=== PATIENT | male | born 1980 | race Caucasian/White ===

== ENCOUNTER 2020-01-12 21:10 | Emergency (ER) | payer OTHER ==
[2020-01-12] MEDS ORDERED: ACETAMINOPHEN-CAFF-BUTALBITAL 1 EA TAB PO ONE (21:20)
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
[2020-01-12 23:33] VITALS: BP 115/77; TEMP 97.4; O2SAT 97
== END 2020-01-12 23:20 | disposition home or self-care (01) ==
LOC: ER 21:10
DX: S00.03XA Contusion of scalp, initial encounter (principal); M62.838 Other muscle spasm; M79.661 Pain in right lower leg; M25.561 Pain in right knee; M25.562 Pain in left knee; V49.3XXA Car occupant (driver) (passenger) injured in unspecified nontraffic accident, initial encounter; Y92.410 Unspecified street and highway as the place of occurrence of the external cause

== ENCOUNTER 2020-01-15 15:01 | Emergency (ER) | payer OTHER ==
[2020-01-15 16:16] VITALS: TEMP 98.2
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
[2020-01-15] MEDS ORDERED: cefTRIAXone SODIUM 1 GM VIAL IM ONE (16:39)
[2020-01-15] MEDS ORDERED: CLINDAMYCIN HCL CAP 150 MG CAP PO ONE (16:39)
[2020-01-15] MEDS ORDERED: TETANUS,DIPHTHERIA,PERTUSSIS 1 EA SYG IM ONE (16:40)
--- NOTE | 2020-01-15 16:44 | ED.PDOC ---
History of Present Illness - General Chief Complaint: Skin/Abrasion/Tear Stated Complaint: abasion left knuckle Time Seen by Provider: 01/15/20 15:56 Source: patient, RN notes reviewed, Vital Signs reviewed - History of Present Illness Occurred: just prior to arrival Allergies/Adverse Reactions: Allergies NO KNOWN ALLERGY Allergy (Verified 01/15/20 16:08) Home Medications: Ambulatory Orders Aspirin [Aspirin 81 Low Dose] 81 mg PO DAILY 01/15/20 Clindamycin HCl [Cleocin] 450 mg PO TID #45 cap 01/15/20 Tramadol HCl [Ultram] 50 mg PO Q4H PRN #15 tab 01/15/20 Review of Systems - Review of Systems Constitutional: States: no symptoms reported EENTM: States: no symptoms reported Respiratory: States: no symptoms reported Cardiology: States: no symptoms reported Gastrointestinal/Abdominal: States: no symptoms reported Genitourinary: States: no symptoms reported Past Medical History (General) - Patient Medical History Hx Seizures: No Hx Stroke: No Hx Dementia: No Hx Asthma: No Hx of COPD: Yes Hx Cardiac Disorders: No Hx Congestive Heart Failure: No Hx Pacemaker: No Hx Hypertension: No Hx Thyroid Disease: No Hx Diabetes: No Hx Gastroesophageal Reflux: No Hx Renal Disease: No Hx Cancer: No Hx of HIV: No Hx Hepatitis C: No Hx MRSA: No Surgical History: no surgical history - Vaccination History Hx Tetanus, Diphtheria Vaccination: No Hx Influenza Vaccination: No Hx Pneumococcal Vaccination: No - Social History Hx Tobacco Use: Yes - recently stopped Hx Chewing Tobacco Use: No Hx Alcohol Use: Yes Hx Substance Use: No Hx Substance Use Treatment: No Hx Depression: No Hx Physical Abuse: No Hx Emotional Abuse: No Hx Suspected Abuse: No Family Medical History - Family History Father Family History: Unknown Physical Exam - Physical Exam General Appearance: Alert, Well Developed, Well Groomed, Well Hydrated, Well Nourished Neck: non-tender, full range of motion, supple, normal inspection Cardiovascular/Respiratory: normal peripheral pulses, normal breath sounds, no respiratory distress Hand Exam: swelling - DORSUM OF HAND WITH A PUNCTURE WOUND, CANNOT APPRECIATE ANY FLUCTULANCE OF MASS OR FB TO PALPATION. Neuro/Tendon: normal sensation Progress - Progress Progress: 01/15/20 16:48 GAVE PATIENT THE OPTION OF EXPLORING THE WOUND NOW OR WAITING UNTIL FB IS PALPABLE. EXPLAINED TO HIM THE ODDS OF SUCCESSFULLY FINDING A FB ARE MUCH IMPROVED IF WE CAN FEEL IT, OTHERWISE THERE IS SIGNIFICANT LIKELIHOOD OF NOT FINDING FB EVEN IF PRESENT. 01/15/20 16:49 HE VOICED UNDERSTANDING AND WANTS TO WAIT. Departure - Departure Clinical Impression: Cellulitis of hand Foreign body hand Qualifiers: Encounter type: initial encounter Laterality: left Qualified Code(s): S60.552A - Superficial foreign body of left hand, initial encounter Time of Disposition: 16:49 Disposition: Discharge to Home or Self Care Departure Forms: ED Discharge - Pt. Copy, Patient Portal Self Enrollment Instructions: DI for Abrasion, Cellulitis (Skin Infection), Adult (DC), Foreign Body in Skin Referrals: David Dias MD [Active Staff] - 1-2 Weeks Prescriptions: Clindamycin HCl [Cleocin] 450 mg PO TID #45 cap Tramadol HCl [Ultram] 50 mg PO Q4H PRN #15 tab PRN Reason: Pain Home Medications: Ambulatory Orders Aspirin [Aspirin 81 Low Dose] 81 mg PO DAILY 01/15/20 Clindamycin HCl [Cleocin] 450 mg PO TID #45 cap 01/15/20 Tramadol HCl [Ultram] 50 mg PO Q4H PRN #15 tab 01/15/20 Additional Instructions: EXPECT YOUR BODY TO PUSH OUT THE FOREIGN BODY (LIKELY PRESENT) OR IT WILL BECOME PALPABLE SO THAT WE CAN EXCISE IT. RECOMMEND FOLLOW UP WITH EITHER ORTHOPEDICS OR GENERAL SURGERY IN 2 DAYS THEY ROUTINELY DO THIS PROCEDURE. YOU CAN ALSO RETURN TO THE ER AND WE CAN DO IT IF IT IS PALPABLE.
[2020-01-15] MEDS ORDERED: LIDOCAINE 1% 2 ML VIAL INJ ONE (16:52)
[2020-01-15 17:13] VITALS: BP 138/79; O2SAT 97
== END 2020-01-15 17:10 | disposition home or self-care (01) ==
LOC: ER 15:01
DX: S61.442A Puncture wound with foreign body of left hand, initial encounter (principal); L03.114 Cellulitis of left upper limb; J44.9 Chronic obstructive pulmonary disease, unspecified; Z87.891 Personal history of nicotine dependence; Z79.82 Long term (current) use of aspirin; Z79.899 Other long term (current) drug therapy; X58.XXXA Exposure to other specified factors, initial encounter; Y92.9 Unspecified place or not applicable
CPT/HCPCS: 73130; 90471; 90715; J0696